=== PATIENT | male | born 1985 | race Caucasian/White ===

== ENCOUNTER 2019-02-22 10:42 | Emergency (ER) | payer MEDICAID ==
[~2019-02-22] VITALS: Ht 182.9 cm; Wt 85.0 kg
[~2019-02-22 10:42] MED LIST: HYDR-4383 PO; IBUP-1986 PO; KETO10TA2 PO; METH4TAB3 PO; NAPR-1154 PO; ONDA4TAB6 PO; SUCR1ORA2 PO
[2019-02-22 11:17] LABS: BASOPHILS # (AUTO) 0.1 X10'3 (0-0.2); BASOPHILS % (AUTO) 0.8 % (0-1); EOSINOPHILS % (AUTO) 0.7 % (0-6); HEMATOCRIT 44.4 % (42.0-52.0); HEMOGLOBIN 15.5 g/dl (14.0-17.9); LYMPHOCYTES # (AUTO) 0.9 X10'3 (1.1-4.8); LYMPHOCYTES % (AUTO) 12.7 % (21-51); MEAN CORPUSCULAR HEMOGLOBIN 34.1 PG (27.0-31.0); MEAN CORPUSCULAR VOLUME 97.7 FL (78-98); MONOCYTES # (AUTO) 0.6 X10'3 (0-0.9); MONOCYTES % (AUTO) 8.3 % (2-12); NEUTROPHILS # (AUTO) 5.5 X10'3 (1.8-7.7); NEUTROPHILS % (AUTO) 77.5 % (42-75); PLATELET COUNT 249 X10'3 (140-440); RED BLOOD COUNT 4.54 X10'6 (4.70-6.10); RED CELL DISTRIBUTION WIDTH 12.7 % (11.5-14.5); WHITE BLOOD COUNT 7.1 X10'3 (4.5-11.0)
[2019-02-22 11:29] LABS: PARTIAL THROMBOPLASTIN TIME 28 SECONDS (22-32)
[2019-02-22 11:37] LABS: ALANINE AMINOTRANSFERASE 47 U/L (12-78); ALBUMIN 3.7 G/DL (3.4-5.0); ALKALINE PHOSPHATASE 94 IU/L (46-116); ANION GAP 6 (8-16); ASPARTATE AMINO TRANSFERASE 34 U/L (10-37); BILIRUBIN,TOTAL 0.3 MG/DL (0.1-1.0); BLOOD UREA NITROGEN 7 MG/DL (7-18); BUN/CREATININE RATIO 6.9 (5.4-32.0); CALCIUM 8.8 MG/DL (8.5-10.1); CHLORIDE 99 MMOL/L (99-107); CREATININE 1.02 MG/DL (0.60-1.10); GLUCOSE 133 MG/DL (70-104); POTASSIUM 3.9 MMOL/L (3.5-5.1); SODIUM 135 MMOL/L (135-145); TOTAL CARBON DIOXIDE 30.3 MMOL/L (24-32); TOTAL PROTEIN 7.3 G/DL (6.4-8.2); eGFR 84 ML/MIN
[2019-02-22] MEDS ORDERED: diphenhydrAMINE 50 mg/ml inj IV ONE (12:05)
[2019-02-22] MEDS ORDERED: metoclopramide 5 mg/ml inj IV ONE (12:05)
[2019-02-22] MEDS ORDERED: ketorolac trometh. 30mg/ml inj. IV ONE (12:05)
[2019-02-22] MEDS ORDERED: normal saline 1000ML IV soln IVB ONE (12:05)
[2019-02-22 12:22] LABS: D-DIMER 0.26 MG/L FEU (0-0.50)
--- NOTE | 2019-02-22 13:49 | NUR ---
PT SLEEPING IN POC. VSS. FAMILY AT BEDSIDE. U/A SENT.
[2019-02-22 14:00] LABS: CLARITY,URINE CLEAR (Clear); COLOR,URINE YELLOW (Yellow); GLUCOSE, URINE NEGATIVE (Neg); KETONES,URINE NEGATIVE (Neg); LEUKOCYTE ESTERASE ,URINE NEGATIVE (Neg); NITRITES, URINE NEGATIVE (Neg); OCCULT BLOOD,URINE NEGATIVE (Neg); PROTEIN,URINE NEGATIVE (Neg); UROBILINOGEN,URINE 0.2 E.U/dL (0.2-1.0)
[2019-02-22 14:01] LABS: UA COLLECTION TYPE CLN CATCH MIDSTREAM
--- NOTE | 2019-02-22 14:07 | NUR ---
PT GETTING SECOND TROP DRAWN NOW EARLY PER MD REQUEST.
[2019-02-22 14:21] LABS: URINE AMPHETAMINE SCREEN POSITIVE (Neg); URINE BARBITUATE SCREEN NEGATIVE (Neg); URINE BENZODIAZEPINES SCREEN NEGATIVE (Neg); URINE CANNABINOID SCREEN NEGATIVE (Neg); URINE COCAINE SCREEN NEGATIVE (Neg); URINE METHADONE SCREEN NEGATIVE (Neg); URINE OPIATE SCREEN NEGATIVE (Neg); URINE PHENCYCLIDINE SCREEN NEGATIVE (Neg)
[2019-02-22 14:30] VITALS: BP 140/72
== END 2019-02-22 15:39 | disposition home or self-care (01) ==
LOC: ER 10:43
DX: G43.909 Migraine, unspecified, not intractable, without status migrainosus (principal); R07.89 Other chest pain; F15.90 Other stimulant use, unspecified, uncomplicated; F10.99 Alcohol use, unspecified with unspecified alcohol-induced disorder; Z79.899 Other long term (current) drug therapy; Y90.9 Presence of alcohol in blood, level not specified
CPT/HCPCS: 36415; 70450; 71045; 80053; 80305; 81003; 84484; 85025; 85379; 85610; 85730; 93005; 96374; 96375; 99284; J1200; J1885; J2765; J7030